=== PATIENT | female | born 1940 | race American Indian/Alaskan Native ===

== ENCOUNTER 2016-11-23 10:50 | Outpatient (CLI) | payer MEDICARE ==
[2016-11-23 11:30] LABS: Albumin 3.8 g/dL (3.9-5); Albumin/Globulin Ratio 1.2 %; BUN/Creatinine Ratio 21.33; Bilirubin,Total 0.4 mg/dL (0.1-1.2); Calcium 8.9 mg/dL (8.4-10.2); Chloride 100.4 mmol/L (98-107); Potassium 3.7 mmol/L (3.6-5.0); Total Protein 7.1 g/dL (6.3-8.2)
[2016-11-23 12:07] LABS: Bacteria,Urine 1+ /HPF (Negative); Bilirubin,Urine NEG (Negative); Blood,Urine NEG (Negative); Ketones,Urine NEG (Negative); Leukocyte Esterase,Urine LG (Negative); Mucus,Urine FEW /HPF; Nitrite,Urine NEG (Negative); Protein,Urine <15 mg/dL mg/dL (Negative)
[2016-11-25 16:54] LABS: Vitamin D, 25-OH, Total 15 ng/mL (30-100)
== END 2016-11-23 10:51 | disposition home or self-care (01) ==
LOC: LAB 10:50
PROVIDERS: ATTEND Internal Medicine Nephrology
DX: N18.3 Chronic kidney disease, stage 3 (moderate) (principal)
CPT/HCPCS: 36415; 80053; 81001; 82043; 82306; 82570; 83970; 84156; 87086

== ENCOUNTER 2017-03-21 12:38 | Outpatient (CLI) | payer MEDICARE ==
[2017-03-21 13:31] LABS: Bacteria,Urine 1+ /HPF (Negative); Bilirubin,Urine NEG (Negative); Blood,Urine NEG (Negative); Ketones,Urine NEG (Negative); Leukocyte Esterase,Urine LG (Negative); Nitrite,Urine NEG (Negative); Protein,Urine <15 mg/dL mg/dL (Negative)
[2017-03-22 17:35] LABS: Vitamin D, 25-OH, Total 10 ng/mL (30-100)
== END 2017-03-21 12:39 | disposition home or self-care (01) ==
LOC: LAB 12:38
PROVIDERS: ATTEND Internal Medicine Nephrology
DX: N18.3 Chronic kidney disease, stage 3 (moderate) (principal)
CPT/HCPCS: 36415; 81001; 82043; 82306; 82570; 83970; 84156; 87086

== ENCOUNTER 2017-10-19 15:17 | Emergency (ER) | payer MEDICARE ==
--- NOTE | 2017-10-19 16:26 | Emergency Department Report ---
ED CPR HPI - General Chief Complaint: Cardiac Arrest/CPR Stated Complaint: CARDIAC ARREST Time Seen by Provider: 10/19/17 15:44 Source: EMS (verbal report received from EMS.ems notes not available at time of chart dictation) Mode of arrival: Stretcher Limitations: Other - History of Present Illness Initial Comments: This is a 77-year-old female who was brought to the hospital by EMS for cardiac arrest. As per verbal report from EMS, initial complaint was for shortness of breath and weakness. They reported the patient was found home, laying down, and severe respiratory distress. They report that in the field the patient was talking. They report that in the field the patient's respirations became worse , her fingerstick was normal, and then she stopped breathing and lost pulses. Initial rhythm was pulseless electrical activity. Patient intubated by EMS with a 6.5 endotracheal tube. Upon arrival to the ER, the patient is pulseless, pupils are dilated and fixed bilaterally, and she is receiving active CPR. Given that EMS indicated that the patient was having severe shortness of breath, that she subsequently had a cardiac arrest, the patient was empirically treated with alteplase for presumed massive pulmonary embolus. Patient also received standard chest compressions and medications as per ACLS protocol. Patient received ACLS interventions for over half hour. Pulses cannot be obtained. Pupils remained fixed and dilated. Resuscitation efforts were subsequently terminated. There is currently no family available. MD Complaint: stopped breathing -: minute(s) Place: home Initial Findings in the Field: lethargic ROSC in the Field: No Associated Injuries: No Associated Symptoms: shortness of breath Treatments Prior to Arrival: intubation, other airway device, chest compressions , epinephrine mgs # - Related Data Home Medications Medication Instructions Recorded Confirmed Last Taken Amlodipine Besylate [Norvasc] 10 mg PO DAILY 11/19/14 09/07/16 09/06/16 Bupropion HCl [buPROPion XL] 150 mg PO BID 11/19/14 09/07/16 2 Days Ago ~11/27/15 Losartan/Hydrochlorothiazide 100 tab PO DAILY 11/19/14 09/07/16 09/06/16 [Hyzaar 100-25 TAB] Meclizine [Antivert] 25 mg PO TID PRN 11/19/14 09/07/16 09/06/16 Naproxen Sodium [Aleve TAB] 50 mg PO DAILY 11/19/14 09/07/16 2 Days Ago ~11/27/15 Nebivolol HCl [Bystolic] 10 mg PO QDAY 11/19/14 09/07/16 09/06/16 traMADol [Ultram 50 MG tab] 50 mg PO Q6HR PRN 11/19/14 09/07/16 09/06/16 Gabapentin [Gralise] 600 mg PO TID 11/29/15 09/07/16 09/06/16 Diphenoxylat-Atrop 2.5-0.025/5 1 tab PO PRN 06/14/16 09/07/16 Unknown Furosemide 20 mg PO DAILY 06/14/16 09/07/16 09/06/16 Meloxicam 15 mg PO DAILY 06/14/16 09/07/16 Unknown Pantoprazole 40 mg PO DAILY 06/14/16 09/07/16 09/06/16 Prednisone 20 mg PO CONT 06/14/16 09/07/16 Unknown Ventolin HFA 2 puff INHALATION Q6HR PRN 06/14/16 09/07/16 Unknown Zolpidem 5 mg PO DAILY 06/14/16 09/07/16 09/06/16 Acetaminophen 1 tab PO PRN PRN 09/07/16 09/07/16 09/05/16 HYDROcodone/APAP 10-325 1 tab PO PRN PRN 09/07/16 09/07/16 09/05/16 Ibuprofen 200 mg PO PRN PRN 09/07/16 09/07/16 09/05/16 Ranitidine HCl 150 mg PO BID 09/07/16 09/07/16 09/06/16 Allergies Allergy/AdvReac Type Severity Reaction Status Date / Time No Known Allergies Allergy Verified 06/14/16 11:18 ED Review of Systems ROS: Stated complaint: CARDIAC ARREST Other details as noted in HPI ED Past Medical Hx - Past Medical History Hx Hypertension: Yes Hx GERD: Yes Hx Renal Disease: Yes Hx Arthritis: Yes Hx COPD: Yes - Social History Smoking Status: Never Smoker - Medications Home Medications: Home Medications Medication Instructions Recorded Confirmed Last Taken Type Amlodipine Besylate [Norvasc] 10 mg PO DAILY 11/19/14 09/07/16 09/06/16 History Bupropion HCl [buPROPion XL] 150 mg PO BID 11/19/14 09/07/16 2 Days Ago History ~11/27/15 Losartan/Hydrochlorothiazide 100 tab PO DAILY 11/19/14 09/07/16 09/06/16 History [Hyzaar 100-25 TAB] Meclizine [Antivert] 25 mg PO TID PRN 11/19/14 09/07/16 09/06/16 History Naproxen Sodium [Aleve TAB] 50 mg PO DAILY 11/19/14 09/07/16 2 Days Ago History ~11/27/15 Nebivolol HCl [Bystolic] 10 mg PO QDAY 11/19/14 09/07/16 09/06/16 History traMADol [Ultram 50 MG tab] 50 mg PO Q6HR PRN 11/19/14 09/07/16 09/06/16 History Gabapentin [Gralise] 600 mg PO TID 11/29/15 09/07/16 09/06/16 History Diphenoxylat-Atrop 2.5-0.025/5 1 tab PO PRN 06/14/16 09/07/16 Unknown History Furosemide 20 mg PO DAILY 06/14/16 09/07/16 09/06/16 History Meloxicam 15 mg PO DAILY 06/14/16 09/07/16 Unknown History Pantoprazole 40 mg PO DAILY 06/14/16 09/07/16 09/06/16 History Prednisone 20 mg PO CONT 06/14/16 09/07/16 Unknown History Ventolin HFA 2 puff INHALATION Q6HR PRN 06/14/16 09/07/16 Unknown History Zolpidem 5 mg PO DAILY 06/14/16 09/07/16 09/06/16 History Acetaminophen 1 tab PO PRN PRN 09/07/16 09/07/16 09/05/16 History HYDROcodone/APAP 10-325 1 tab PO PRN PRN 09/07/16 09/07/16 09/05/16 History Ibuprofen 200 mg PO PRN PRN 09/07/16 09/07/16 09/05/16 History Ranitidine HCl 150 mg PO BID 09/07/16 09/07/16 09/06/16 History ED Physical Exam - General Limitations: Other (intubated, nonverbal) General appearance: obtunded - Head Head exam: Present: atraumatic, normocephalic - Eye Eye exam: Absent: normal appearance (pupils are fixed and dilated and do not respond.) - ENT ENT exam: Present: normal orophraynx, other (endotracheal tube is noted in the oropharynx.) - Neck Neck exam: Present: normal inspection - Respiratory Respiratory exam: Present: other (no breath sounds less [id number] ventilation is applied) - Cardiovascular Cardiovascular Exam: Present: other (patient is pulseless). Absent: systolic murmur, diastolic murmur, rubs, gallop - GI/Abdominal GI/Abdominal exam: Present: soft - External exam: Present: normal external exam - Extremities Exam Extremities exam: Present: normal inspection - Back Exam Back exam: Present: normal inspection - Neurological Exam Neurological exam: Present: other (intubated, GCS of 3) - Psychiatric Psychiatric exam: Present: other (patient is nonverbal) - Skin Skin exam: Present: dry ED Course Vital Signs 10/19/17 15:36 Pulse Rate 0 L - EJ/Peripheral Line Neck L Time Out Performed: No Indications: multiple IV sites needed Skin Cleansed in Sterile Fashion: Yes Size: 18 Dressing Placed: Tegaderm Patient Tolerated Procedure: well ED Medical Decision Making - Medical Decision Making Differential diagnosis, including but not limited to: COPD exacerbation, pneumonia, pulmonary embolus, acute coronary syndrome, hyperkalemia differential diagnosis is including but not limited to the aforementioned conditions: Critical care attestation.: If time is entered above; I have spent that time in minutes in the direct care of this critically ill patient, excluding procedure time. ED Disposition Clinical Impression: Cardiac arrest Disposition: [id number] Is pt being admited?: No Does the pt Need Aspirin: No Condition: Undetermined Referrals: PRIMARY CARE, [Primary Care Provider] - 3-5 Days
[2017-10-19] MEDS ORDERED: ADRENALIN ONE (18:00)
[2017-10-19] MEDS ORDERED: CALCIUM CHLORIDE IV ONE (18:00)
[2017-10-19] MEDS ORDERED: SODIUM BICARBONATE IV ONE (18:00)
[2017-10-19] MEDS ORDERED: ACTIVASE ONE (18:25)
[2017-10-19] MEDS ORDERED: CATHFLO IV ONE ×2 (19:06)
[2017-10-19] MEDS ORDERED: ACTIVASE IV ONE (19:23)
== END 2017-10-20 ==
LOC: ED 15:17
DX: I46.9 Cardiac arrest, cause unspecified (principal)
CPT/HCPCS: 36569; 37212; 82962; 92950; 96374; 99285; J0171; J2997; J1815